=== PATIENT | female | born 1965 | race Caucasian/White ===

== ENCOUNTER 2017-08-31 14:40 | Outpatient (CLI) | payer OTHER | END 2017-08-31 15:43 | disposition home or self-care (01) | LOC: DCC 14:40 | DX: N20.0 Calculus of kidney (principal); N83.209 Unspecified ovarian cyst, unspecified side; N28.89 Other specified disorders of kidney and ureter; R42 Dizziness and giddiness | CPT/HCPCS: G0463 ==

== ENCOUNTER 2017-09-25 13:59 | Outpatient (CLI) | payer OTHER | END 2017-09-25 16:03 | disposition home or self-care (01) | LOC: DCC 13:59 | DX: N28.89 Other specified disorders of kidney and ureter (principal); N20.0 Calculus of kidney; H02.9 Unspecified disorder of eyelid | CPT/HCPCS: G0463 ==